=== PATIENT | female | born 1945 | race Caucasian/White ===

== ENCOUNTER 2024-03-13 09:11 | Emergency (ER) | payer MEDICARE, SELFPAY ==
[2024-03-13 09:12] VITALS: BP 134/58; PULSE 70; RESP 18; TEMP 36.4; O2SAT 96
--- NOTE | 2024-03-13 09:51 | EDS_ITS ---
HPI History of Present Illness HPI Narrative: Patient presents with pain in her left hip and groin that began after a fall 3 days ago. Patient states she slipped and fell. Patient denies any head injury or loss of consciousness. Patient denies any paresthesias or weakness. Patient states her pain is worse with any weightbearing. Patient states that whenever she tries to ambulate, as she feels like her hip will give out and she will fall. Patient describes her pain as stabbing. Patient states nothing seems to help with the pain. Chief Complaint: Lower Extremity Injury Informant: patient Occured/Mechanism Mechanism/Context: Yes fall Onset/Context/Timing Onset: Days (3) Context: Sudden Onset Timing: Continuous Quality of Pain: Stabbing Location: Left hip and groin Worsened by: Weightbearing Relieved by: Nothing Associated Symptoms Associated Symptoms: Negative for Parasthesia, Weakness or Loss of Funtion [facility] Medical History (Updated 03/13/24 @ 11:[address] Hair Elias, ) Hypercholesterolemia Hypertension Home Medications ?Medication ?Instructions ?Recorded ?Last Taken ?Type aspirin 81 mg chewable tablet 81 mg PO DAILY@0800 09/17/13 Unknown History atorvastatin 20 mg tablet 80 mg PO DAILY 09/17/13 Unknown History clopidogrel 75 mg tablet 75 mg PO DAILY 12/19/16 Unknown History epinephrine 0.3 mg/0.3 mL 0.3 mg (0.3 mL) IM X1 ##2 12/19/16 Unknown Rx injection, auto-injector losartan 25 mg tablet 25 mg PO DAILY 12/19/16 Unknown History metoprolol tartrate 25 mg tablet 12.5 mg PO BID 12/19/16 Unknown History prednisone 20 mg tablet 60 mg (3 x 20 mg) PO DAILY ##15 12/19/16 Unknown Rx hydrocodone-acetaminophen 5-325mg 1 tab PO Q6H PRN PRN Pain 3 days 03/13/24 Unknown Rx 5mg-325mg #10 TABLETS Allergy/AdvReac Type Severity Reaction Status Date / Time lisinopril Allergy Hives Verified 03/13/24 09:12 Surgical History no surgical history no surgical history Social History Smoking Status: Current every day smoker tobacco type: cigarettes ROS ROS ED Constitutional Constitutional ED: Denies chills or fever(s) Eyes Eyes: Denies blurry vision or change in vision ENT ENT ED: Denies rhinorrhea or sore throat Cardiovascular Cardiovascular: Denies chest pain or palpitations Respiratory/Chest Respiratory/Chest: Denies cough or dyspnea Gastrointestinal Gastrointestinal: Denies nausea or vomiting Genitourinary Genitourinary ED: Denies dysuria or hematuria Musculoskeletal Musculoskeletal: Reports back pain; Denies neck pain Integumentary Denies abscess or rash Neurologic Neurologic: Denies headache(s) or weakness Allergic/Immunologic Allergic/Immunologic ED: Denies mouth swelling or urticaria EXAM Physical Exam Const Vital Signs: 03/13/24 09:12 Temperature 97.6 F L Temperature Source Oral Pulse Rate 70 Respiratory Rate 18 Blood Pressure 134/58 H Blood Pressure Mean 83 Pulse Ox 96 Oxygen Delivery Method Room Air Positive well nourished and well developed General Appearance ED: well developed and NAD HEENT Reports moist mucous membranes Neck full ROM and supple Resp normal respiratory effort and clear to auscultation bilaterally Cardio regular rate and regular rhythm GI non-tender and non-distended Palpation: soft Extremity Extremity Narrative: There is tenderness to palpation over the left hip and inguinal area. There is no obvious deformity noted. There is no shortening or external rotation. There is pain with internal and external rotation of the left lower extremity. Range of motion was limited in all motions of the left hip secondary to pain. Strength is 5/5 bilaterally in the lower extremities. There are no sensory deficits noted. Pedal pulses are equal bilateral. Neuro oriented x3, CN's II-XII intact bilaterally, moves all extremities and no sensory deficits noted Sensorium / Orientation: alert Motor Exam: strength 5/5 throughout Psych mental status grossly normal MDM MDM MDM Narrative Medical decision making narrative: Differential diagnosis includes hip fracture, dislocation, pelvic fracture, and contusion. X-rays of the left hip will be obtained to assess for fracture. Radiography X-Ray: Left Hip, Read by ED Physician, Read by Radiologist and Fracture (Left superior pubic ramus) Diagnostic Testing: Clinical Impression(s) from Imaging Studies Hip/Pelvis X-Ray 03/13/24 10:11 IMPRESSION: Fracture of the left superior pubic ramus. CT scan of the pelvis might be further value Electronically Signed: Allan Peters MD at 10:27 EDT , X-rays of the left hip were obtained. There are 3 views. On my independent interpretation, there is a minimally displaced fracture of the left superior pubic ramus. There are no other fractures noted. Radiologist also interpreted the x-rays and agrees. Treatment and Re-Evaluation Narrative: Patient was given a dose of [place] here. Patient was advised of her findings. Patient was given a walker. Patient is given a prescription for short course of [place]. Patient and think that they will be able to do her normal activities at home. Patient prefers to go home. Patient was instructed to follow-up with her primary care physician in 5 to 7 days. Patient was instructed to return if worse in any way. Patient and spouse understand and are agreeable with the plan. All questions were answered. Discharge Plan Triage Chief Complaint: Lower Extremity Injury ED Provider: Hair Elias Dx/Rx/DC Orders Clinical Impression: Closed fracture of left superior pubic ramus, Fall Instructions: ED Pelvic Fracture Prescriptions: New hydrocodone-acetaminophen 5-325 mg tablet 1 tab PO Q6H PRN PRN (Reason: Pain) 3 Days Qty: 10 0RF No Action atorvastatin 20 MG tablet 80 mg PO DAILY aspirin 81 MG tablet,chewable 81 mg PO DAILY@0800 clopidogrel 75 MG tablet 75 mg PO DAILY losartan 25 MG tablet 25 mg PO DAILY metoprolol tartrate 25 MG tablet 12.5 mg PO BID epinephrine 0.3 MG syringe 0.3 mg IM X1 Qty: 2 0RF prednisone 20 MG tablet 60 mg PO DAILY Qty: 15 0RF Primary Care Provider: Robert Hollingsworth Referrals: Robert Hollingsworth MD [Primary Care Provider] - 3-5 Days Cassi Henry MD [Non-Staff] - 3-5 Days Print Language: Estonian Disposition Disposition: Home, Self Care
--- NOTE | 2024-03-13 10:11 | RAD_ITS ---
INDICATION: Injury/Pain EXAMINATION/TECHNIQUE: X-RAY - XR Hip Unilateral with Pelvis when performed; 2-3 Views COMPARISON: No relevant prior comparison study available FINDINGS: PELVIC BONES: Fracture of the left superior pubic ramus. Note that overlapping bowel shadows may however obscure fine detail. Sacroiliac joints are unremarkable. No widening of the pubic symphysis. HIPS: Moderate narrowing of the hip joints bilaterally. No displaced fracture seen in this frontal view. SOFT TISSUES: No soft tissue swelling or gas. RAD/HIP, UNI W/ Pelvis 2-3 Views IMPRESSION: Fracture of the left superior pubic ramus. CT scan of the pelvis might be further value Electronically Signed: Allan Peters MD at 10:27 EDT ,
[2024-03-13] MEDS: HYDROcodone Bitartrate/Apap 5/325 Tablet PO (11:25)
[2024-03-13 11:26] VITALS: BMI 21.3
[2024-03-13 11:30] VITALS: BP 122/62; PULSE 57
== END 2024-03-13 11:41 | disposition home or self-care (01) ==
PROVIDERS: Emergency Provider Emergency Medicine; PCP Family Medicine; Visit Provider Emergency Medicine
DX: S32.512A Fracture of superior rim of left pubis, initial encounter for closed fracture (principal); I10 Essential (primary) hypertension; W18.39XA Other fall on same level, initial encounter; E78.00 Pure hypercholesterolemia, unspecified; Z79.82 Long term (current) use of aspirin; Z79.899 Other long term (current) drug therapy; F17.210 Nicotine dependence, cigarettes, uncomplicated
CPT/HCPCS: 73502; 99282